=== PATIENT | male | born 1980 | race Caucasian/White ===

== ENCOUNTER 2017-11-24 17:59 | Emergency (ER) | payer SELFPAY ==
[2017-11-24] MEDS ORDERED: Pantoprazole 40 mg EC Tab PO STA (18:20)
[2017-11-24] MEDS ORDERED: Acetaminophen 500 MG TAB PO ONE (18:21)
[2017-11-24] MEDS ORDERED: Thiamine 100 mg/mL 2mL Vial IM STA (18:21)
[2017-11-24] MEDS ORDERED: Thiamine 100 mg/mL 2mL Vial ONE (18:24)
[2017-11-24] MEDS ORDERED: Acetaminophen 500 MG TAB ONE (18:24)
[2017-11-24] MEDS ORDERED: Pantoprazole 40 mg EC Tab PO ONE (18:24)
[2017-11-24] MEDS ORDERED: Sodium Chloride 0.9% 1,000 ML IV ONE (18:28)
[2017-11-24] MEDS ORDERED: Maalox 30 mL Cup PO ONE (18:29)
[2017-11-24 18:43] LABS: % BASOPHILS 0.3 % (0.0-2.0); % EOSINOPHILS 2.9 % (0.0-5.0); % LYMPHOCYTES 21.5 % (20.0-50.0); % MONOCYTES 4.4 % (2.0-10.0); % NEUTROPHILS 70.9 % (40.0-80.0); EOSINOPHILE ABSOLUTE 0.2 Th/cmm (0.1-0.4); HEMATOCRIT 45.6 % (41.0-60); HEMOGLOBIN 14.8 gm/dL (12-16); LYMPHOCYTE ABSOLUTE 1.5 Th/cmm (1.5-3.0); MEAN CELL VOLUME 89.3 fl (80-99); MEAN CORPUSCULAR HGB CONC 32.5 pg (28.0-36.0); MONOCYTE ABSOLUTE 0.3 Th/cmm (0.3-1.0); PLATELET COUNT 180 Th/cmm (150-400); RED CELL DISTRIBUTION WIDTH 12.5 % (11.5-20.0)
[2017-11-24] MEDS ORDERED: Maalox 30 mL Cup ONE (18:48)
[2017-11-24 19:03] LABS: ALB/GLOB RATIO 1.5 (1.0-1.8); ALBUMIN 4.3 gm/dL (4.2-5.5); ALKALINE PHOSPHATASE 102 U/L (34-104); ANION GAP 12.6 (7.0-16.0); BILIRUBIN,TOTAL 0.5 mg/dL (0.3-1.0); BUN - UREA NITROGEN 9 mg/dL (7-25); CALCIUM SERUM 8.8 mg/dL (8.6-10.3); CARBON DIOXIDE 23.9 mEq/L (21.0-31.0); CHLORIDE 104 mEq/L (98-107); CREATININE - SERUM 0.6 mg/dL (0.7-1.3); GFR AFRICAN-AMERICAN > 60.0 ml/min (>90); GFR NON AFRICAN-AMERICAN > 60.0 ml/min; GLUCOSE 117 mg/dL (70-105); POTASSIUM SERUM 3.5 mEq/L (3.5-5.1); SGOT 20 U/L (13-39); SGPT/ALT 20 U/L (7-52); SODIUM SERUM 137 mEq/L (136-145); TOTAL PROTEIN,SERUM 7.2 gm/dL (6.0-8.3)
[2017-11-24 19:06] LABS: BILIRUBIN,DIRECT 0.07 mg/dL (0.0-0.2)
[2017-11-24 19:21] LABS: CHOLESTEROL 188 mg/dL (<200)
[2017-11-24 19:22] LABS: HDL -HIGH DENSITY LIPOPROTEIN 48 mg/dL (23-92); TRIGLYCERIDES 94 mg/dL (<150)
--- NOTE | 2017-11-24 20:16 | Transfer Summary ---
DATE OF TRANSFER: EMERGENCY ROOM EVALUATION AND TREATMENT CODE STATUS: He is a full code patient. HISTORY OF PRESENT ILLNESS: He is a 36-year-old male patient, brought in by his female friend, not the girlfriend, but just a friend from the same [place], brought him because of he vomited this morning and he has a headache and he has some photophobia, so he was brought over here. The patient says that he vomited only once today and the patient started to have headache. 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 He is working in the packing industry. He does not smoke. He drank alcohol today. He drank one big bottle of beer about 32 hours at least and he has been drinking alcohol almost daily. He does not take any marijuana, cocaine, or heroin. REVIEW OF SYSTEMS: EYES: No history of double vision, blurring, blindness. Otherwise he has photophobia. he is wearing dark glasses, shiny. CENTRAL NERVOUS SYSTEM: No history of TIA, stroke, encephalitis, meningitis, or Wernicke encephalopathy. No history of any tumor. CONSTITUTIONAL: No history of any fevers, chills, or rigors. BONES AND JOINTS: No apparent complaints. HEART: No history of chest pain, myocardial infarction, rheumatic fever, valvular heart disease, or pericardial disease. PULMONARY: No history of pneumonia, TB, pulmonary embolism, except for 10 years history of methamphetamine 3 times a day smoking despite years of friend she knows him, he has never told anybody that he is doing it. He works in a packing industry. GASTROINTESTINAL: Abdominal pain in the epigastric area, nausea sensation in the morning, and now headache. No diarrhea. No history of any diarrhea. No history of any hematochezia, vomiting blood. LUNG: No history of any lung tumor, TB, pulmonary embolism, COPD, emphysema, or bronchitis. ENDOCRINE: No history of diabetes mellitus, hypo or hyperthyroidism. BONES AND JOINTS: No apparent complaints. A 12-point review of system is essentially benign and negative. PHYSICAL EXAMINATION: GENERAL: He appears to be adequately built and nourished. He is not in any distress. He is having some headache, no vomiting at the present moment, only one vomit only this morning. VITAL SIGNS: Shows 100% on room air, respirations 12, blood pressure 127/92, heart rate 88, and temperature of 98.2. Vitals signs as I mentioned earlier except for hypertension 127/92 most likely because of methamphetamine induced. Headache, pain can also do that. Dehydration can do that, so will take care of all these things. HEENT: Conjunctivae are pink, sclerae white. HEENT: Normal. No evidence of any jaundice. No edema, no cyanosis, no petechia. No ecchymosis. Oral general physical exam is benign and negative. Wearing dark glasses. No meningeal signs. CHEST: Clear. Trachea being central. Fairly good air entry in both lung without any rales, rhonchi, or bronchial wheezing. Lungs are clear. ABDOMEN: Soft, benign, and negative. Minimally if any tenderness in epigastric area. Liver, spleen not enlarged. No free fluid in the abdominal cavity. CENTRAL NERVOUS SYSTEM: Grossly within normal limits. Central nervous systems is otherwise normal. HEART: Reveals normal heart sounds. No fourth heart sounds. Third heart sound is absent. No pericardial rub. No murmur, no clicks. BONES AND JOINTS: Normal. There is no evidence of any cancer or tumor. Mobility is normal. Walking okay. Gait is okay. Reflexes are okay. DIAGNOSTIC DATA: EKG was ordered, which was just done. I will look at it and tell you what does it show. EKG was done because he was taking methamphetamine. EKG shows normal sinus rhythm with a suggestion possibly of very very early left atrial enlargement possibility ____10, 15, 20, 25 and then up. High left ventricular voltage, but no definite hypertrophy, but it is early leading to hypertrophy and early signs of left atrial enlargement and these are the findings we see in patient who have hypertension and methamphetamine will cause a stimulation and hypertensive type of sensation with tachycardia, etc. FINAL DIAGNOSES: The patient having abdominal pain, nausea, and vomiting this morning along with ingestion of methamphetamine along with taking 32 ounces of beer and drinking and eating a big taco this morning. OTHER DIAGNOSES: 1. Every day 3 times a day for 10 years he is smoking methamphetamine 3 times a day. 2. History of drinking almost daily. 3. Never had previous history of abdominal pain or diarrhea. He works in the packaging industry. He appears to be somewhat dehydrated. We will give him some IV fluids. Thiamine has been given to the patient. Tylenol for the headache Mylanta, Antivert has been given, Zofran has been given, pantoprazole has been given to the patient. We will give him some Lopressor to lower his blood pressure down and get his reflexes and his excitement level a little bit down. OTHER DIAGNOSES: Includes most likely may be having some gastritis as a result of drinking alcohol, so he may need a pantoprazole for at least a month and to stop taking methamphetamine and using other drugs. Early manifestation of possible LVH, but no definite LVH is seen on the EKG. The patient has been given Tylenol, Maalox has been given, meclizine has been given for his dizziness and for dehydration, IV fluids has been given. For his nausea and vomiting, the patient was given 4 mg Zofran IV and Protonix 40 mg p.o. stat, thiamine 200 mg given IV. The nurses were here. They know about the patient and hopefully, we will give the patient some beta blockers also at the present moment. JOB# [id number]
[2017-11-25 08:07] LABS: IRON LC 93 ug/dL (38-169); TIBC (LC) 406 ug/dL (250-450); UIBC 313 ug/dL (111-343)
== END 2017-11-24 19:45 | disposition home or self-care (01) ==
LOC: ER 17:59
DX: R11.10 Vomiting, unspecified (principal); R51 Headache; H53.149 Visual discomfort, unspecified
CPT/HCPCS: 99285; 96372; 96374; 93005; 84484; 36415; 83550; 84443; 85025; 82248; 83540; 80053; 80061; 84439; J2405; J3411; J7030; Z7610